=== PATIENT | male | born 1960 | race Caucasian/White ===

== ENCOUNTER → 2017-02-01 | Outpatient (CLI) | payer MEDICAID ==
[~2017-02-01] MED LIST: ADVIL ALLERGY-1 EACH PO; ADVIL200 MG PO; CHERRY EXTRACT PO; COLACE100 MG PO; FEOSOL325 MG PO; GLUCOPHAGE500 MG PO; HYDRODIURIL25 MG PO; LEVEMIR FL100 UNIT/1 SUB-Q; LISINOPRIL-HCT1 EAC2 PO; LOVENOX 4040 MG/0.4 SUB-Q; MYLICON OR GAS-80 MG PO; NOVOLIN-N100 UNIT/M SUB-Q; PERCOCET 5-3251 EACH PO; PRINIVIL (ZESTR20 MG PO; PROTONIX40 MG PO
== END | disposition disaster alternative care site (69) ==
LOC: GRAD 11:00
DX: S32.402D Unspecified fracture of left acetabulum, subsequent encounter for fracture with routine healing (principal); X58.XXXD Exposure to other specified factors, subsequent encounter